=== PATIENT | female | born 1940 | race Caucasian/White ===

== ENCOUNTER 2023-04-04 05:58 | Emergency (ER) | payer MEDICARE, SELFPAY ==
[2023-04-04] VITALS (19 sets, daily range): BP systolic 152–187; BP diastolic 69–126; PULSE 71–98; RESP 12–23; TEMP 36.3–36.7; O2SAT 95–96
--- NOTE | ~2023-04-04 | CT_ITS ---
EXAMINATION: CT chest abdomen pelvis wo con DATE: 04/04/2023 07:03 INDICATION: Chest pain. Nausea. Diarrhea. TECHNIQUE: Computed tomography (CT) of the chest, abdomen, and pelvis was performed without intraveno us contrast. Automated exposure control and iterative reconstruction technique were employed. The dos e-length product was 1540.09 mGy-cm. COMPARISON: None FINDINGS: CHEST CT: There is mild scarring at right lung apex. There is mild atelectasis bilaterally. No pleural effusion . Cardiomegaly is noted. There are coronary artery calcifications. No pericardial effusion. The centr al pulmonary arteries are enlarged, consistent with pulmonary arterial hypertension. There is a moder ate-sized sliding hiatal hernia. There is mild thoracic spondylosis. ABDOMEN/PELVIS CT: There is a 6 mm cyst in the liver. The spleen is normal. There are gallstones in the gallbladder, whi ch is normal in size. The pancreas is normal. There is a 1.8 cm mass in right adrenal gland measuring soft tissue attenuation. There is a 2.4 cm mass in left adrenal gland measuring low attenuation, con sistent with an adenoma. There is a 9 mm cyst in left kidney. There is mild bilateral hydronephrosis. The bladder is distended. There is diverticulosis of the colon without evidence of diverticulitis. T here are no dilated loops of bowel. The appendix is not visualized. There is an umbilical hernia cont aining fat. Aortic atherosclerosis is noted. There are no pathologically enlarged lymph nodes. There is no free intraperitoneal fluid. There is internal fixation of right femur. There is severe lumbar s pondylosis. IMPRESSION: 1. Moderate-sized sliding hiatal hernia. 2. 1.8 cm mass in right adrenal gland. In the absence of known malignancy, this finding is likely an adenoma. 3. Distended bladder with mild bilateral hydronephrosis. 4. Umbilical hernia containing fat. Reviewed, dictated and finalized at location A.
--- NOTE | ~2023-04-04 | CT_ITS ---
EXAMINATION: CT brain wo con DATE: 04/04/2023 07:03 INDICATION: Dizziness. TECHNIQUE: Computed tomography (CT) of the head was performed without intravenous contrast. The mA wa s adjusted according to patient size. Iterative reconstruction technique was employed. The dose-lengt h product was 605.33 mGy-cm. COMPARISON: Head CT 09/23/2017 FINDINGS: There is an infarct in left thalamus. There are scattered areas of low attenuation in the c erebral white matter. The ventricles are normal in size. There is mucosal thickening in the paranasal sinuses. There is thickening and sclerosis of the burch of left maxillary sinus, consistent with chr onic sinusitis. The mastoid air cells are normal. There is cerumen in the external auditory canals. T he orbits are normal. IMPRESSION: 1. 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 2. Moderate nonspecific cerebral white matter disease, which likely represents chronic small vessel i schemic disease. Reviewed, dictated and finalized at location A. IMPRESSION: 1. 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 2. Moderate nonspecific cerebral white matter disease, which likely represents chronic small vessel ischemic disease.
--- NOTE | 2023-04-04 06:11 | ED.GENADULT ---
HPI - General Adult General Chief complaint: Dizziness Stated complaint: Dizziness/Nausea Time Seen by Provider: 04/04/23 05:59 Source: patient Mode of arrival: ambulatory Limitations: other ( patient is hard of hearing) History of Present Illness HPI narrative: 82-year-old white female brought in by EMS complaining of nausea and dizziness that started sometime tonight she is not quite sure when. Denies any vomiting as she feels dizzy can not really describe what she means by that. She says her commode at the end of the bed she tried to get up to go the commode she felt dizzy and off balance. Patient said she had some chest pain her right chest earlier and some in ambulance on the way. She had a diarrheal stool on the way in the ambulance. Does not have any chest pain now. patient upset about her 2 grandchildren have killed themselves, the most recent was 3 weeks ago. Past medical history she is post have cataracts this month and also in June she has D decreased hearing but has not had a hearing aid she has had 2 stents without any myocardial infarction or other heart disease she denies any lung diseas She has no change in her vision or hearing her both bad she walks with a walker just a few steps does not do any regular walking she has occasional tingling of her left hand she can not say when the last time that was she had some left calf tenderness or pain 3 or 4 days ago that comes and goes denies any headache or back pain or any other pain besides the chest pain that she had earlier. She said she sometimes has difficulty urinating and she wears a depends denies any dysuria her last bowel movement was yesterday. She has had a little bit of a cough and she said she had a sore throat last night cough is productive of white sputum but she denies any shortness of breath denies any rash or itching. Related Data Home Medications Medication Instructions Recorded Confirmed insulin glargine 100 unit/mL (3 36 unit subcut DAILY 04/04/23 04/04/23 mL) subcutaneous pen (Lantus Solostar U-100 Insulin) levothyroxine 150 mcg tablet 150 mcg PO DAILY 04/04/23 04/04/23 lisinopril 20 mg tablet 20 mg PO DAILY 04/04/23 04/04/23 Allergies Allergy/AdvReac Type Severity Reaction Status Date / Time aloe Allergy Unknown Verified 04/04/23 07:08 Review of Systems Review of Systems: All systems reviewed & are unremarkable except as noted in HPI and below Exam Narrative: White Elderly female patient milddistress.? Head normocephalic, atraumatic.? Eyes conjunctiva pink sclera nonicteric.? Extraocular movements are intact. she has nystagmus looking to the right with a fast component to the right. Positive Hallpike maneuver.? Ears externally normal. Hearing is decreased.? Oropharynx is clear . Lips are dry.? Neck is supple nontender no lymphadenopathy, no no bruits.? Back is nontender.? Lungs are clear.? Heart is regular rate and rhythm without murmurs gallops or rubs.? Chest wall is nontender.? Abdomen, positive bowel sounds and soft and nontender, no hepatosplenomegaly or masses no CVA tenderness no abdominal bruits.? Extremities no cyanosis clubbing or edema.? Skin is warm and dry without rashes or lesions.? Neurological patient is alert and oriented x4.? Motor and sensory grossly intact.? Gait not tested. Hallpike maneuver was positive. Medical Decision Making [facility] Narrative Medical decision making narrative: patient is placed in room 2 by EMS history and physical was performed. IV was started she was given L of fluid. she is given Zofran 4 mg IV WBCs 4.0, H and H is normal. Coags normal, CMP unremarkable.? Lactic acid Lipase troponin and magnesium pending and urinalysis yet to be collected Independent Historian: ? EMS EKG per EMS showed left bundle-branch block as independently interpreted by me. Differential Dx includes but not limited to: benign positional vertigo, stroke infected acute coronary syndrome Medications:?
--- NOTE | 2023-04-04 06:15 | ECG_ITS ---
Measurements Intervals [place] Rate: 80 P: 59 MA: 152 QRS: 97 QRSD: 186 T: -67 QT: 472 QTc: 545 Interpretive Statements SINUS RHYTHM BORDERLINE RIGHT AXIS DEVIATION LEFT BUNDLE BRANCH BLOCK ABNORMAL ECG NO PREVIOUS ECG AVAILABLE FOR COMPARISON Electronically Signed On 04-06-2023 12:13:14 CDT by Don Madrid M.D.
[2023-04-04] MEDS: SODIUM CHLORIDE 0.9% IV 1,000 ML 150 ML IV CONT (06:20)
[2023-04-04] MEDS: ONDANSETRON INJ 4 MG/2 ML VIAL IV PUSH ×2 (06:28→10:17)
[2023-04-04 06:44] LABS: Hematocrit 36.5 % (35.0-42.0); Mean Corpuscular HGB Conc 32.9 g/dL (32.0-36.0); Mean Corpuscular Hemoglobin 28.8 pg (27.0-31.0); Mean Corpuscular Volume 87.5 fL (78.0-102.0); Mean Platelet Volume 8.8 fl (9.2-11.8); Platelet Count Result 279 K/mm3 (150-420); Red Blood Count 4.17 M/mm3 (4.20-5.40); Red Cell Distribution Width 15.3 % (11.6-14.4)
[2023-04-04 06:59] LABS: Alanine Aminotransferase 11 U/L (14-59); Albumin Level 3.6 g/dL (3.4-5.0); Alkaline Phosphatase 57 U/L (46-116); Anion Gap 10 mmol/L (8-16); Aspartate Amino Transferase 11 U/L (15-37); Bilirubin,Total 0.3 mg/dL (0.00-1.00); Blood Urea Nitrogen 8 mg/dL (7-18); Calcium 8.8 mg/dL (8.5-10.1); Carbon Dioxide 28 mmol/L (21-32); Chloride 99 mmol/L (98-108); Estimated CRCL calculation 67 ml/min; Estimated Glomerular Filt Rate > 60; Glucose 143 mg/dL (70-99); INR 0.9; Osmolality Calculated 284 mOsm/kg (285-295); Partial Thromboplastin Time 30.4 SEC (23.90-30.70); Potassium 3.7 mmol/L (3.5-5.1); Prothrombin Time 10.2 Seconds (9.50-12.10); Sodium 137 mmol/L (136-145); Total Protein 7.1 g/dL (6.4-8.2)
[2023-04-04 07:27] LABS: Lipase 25 U/L (16-77); Magnesium 1.8 mg/dL (1.8-2.4); Troponin I 28.2 ng/L (0.00-60.4)
[2023-04-04 07:29] LABS: Lactic Acid Reflex 0.7 mmol/L (0.4-2.0)
[2023-04-04 07:34] LABS: Appearance Urine Clear (Clear); Bilirubin Urine Negative (Negative); Blood Urine Negative (Negative); Color Urine Light Yellow (Yellow); Glucose Urine UA Negative (Negative); Ketones Urine Negative (Negative); Leukocyte Esterase Ur Negative LEU/UL (Negative); Nitrate Urine Negative (Negative); Protein Urine Negative (Negative); Urobilinogen Urine 0.2 mg/dL (0.2-1.0); pH Urine 7.5 (5.0-8.0)
[2023-04-04 07:36] LABS: Add Urine Microscopic? NO
[2023-04-04] MEDS: MECLIZINE HCL 25 MG TABLET PO (08:45)
[2023-04-04 09:24] LABS: Glucose Point of Care 113 mg/dl (65-105)
[2023-04-04 10:09] LABS: Troponin I 33.9 ng/L (0.00-60.4)
--- NOTE | 2023-04-06 14:17 | PC.NURSE ---
FINAL URINE CULTURE RESULTS: ISOLATE 1: GREATER THAN 100,000 CFU/ML OF ESCHERICHIA COLI. PER ERP TO NOTIFY PMD OFFICE. EFRAIN ROBERTS AT [facility] WAS NOTIFIED OF RESULTS AND C&S WERE FAXED TO THE OFFICE. [facility] TO FOLLOW UP WITH PT AND CONTINUE TREATMENT.
--- NOTE | 2023-04-10 13:42 | PC.NURSE ---
Final blood culture report: no growth after 5 days, no further treatment or medications needed.
== END 2023-04-04 11:24 | disposition home or self-care (01) ==
PROVIDERS: Emergency Medicine; Emergency Provider Student in an Organized Health Care Education/Training Program; PCP Physician Assistant
DX: R42 Dizziness and giddiness (principal); R07.89 Other chest pain; R10.9 Unspecified abdominal pain; Z79.4 Long term (current) use of insulin
CPT/HCPCS: 36415; 70450; 71250; 74176; 80053; 81003; 82948; 83605; 83690; 83735; 84484; 85027; 85610; 85730; 87040; 87077; 87086; 87088; 87186; 93005; 96361; 96374; 96375; 99284; A9270; J2405; J7030

== ENCOUNTER 2023-04-08 16:12 | Emergency (ER) | payer MEDICARE, SELFPAY ==
--- NOTE | 2023-04-08 16:16 | ED.NAVMDI ---
HPI - Nausea/Vomiting/Diarrhea General Chief complaint: Urogenital-Female Stated complaint: Dizziness/Nausea Time Seen by Provider: 04/08/23 16:14 Source: patient, EMS and RN notes reviewed Mode of arrival: EMS Limitations: no limitations History of Present Illness HPI Narrative: Patient recently diagnosed with UTI and is currently on antibiotics. Still having problems with frequent urination. Feels a fullness in her lower abdomen but no pain. Says it feels like when she had the UTI 4 days ago. MD elicited complaint: nausea Onset (ago): day(s) (4) Associated nausea: Yes Associated abdominal pain: Yes Location of pain: diffuse Pain consistency: constant Severity: mild Quality: dull ( Pressure) Exacerbating factors: none Relieving factors: none Context: recent antibiotic use Associated symptoms: fever/chills, loss of appetite, malaise, dysuria ( frequent urination) and other ( dizziness) Related Data Home Medications Medication Instructions Recorded Confirmed insulin glargine 100 unit/mL (3 36 unit subcut DAILY 04/04/23 04/04/23 mL) subcutaneous pen (Lantus Solostar U-100 Insulin) levothyroxine 150 mcg tablet 150 mcg PO DAILY 04/04/23 04/04/23 lisinopril 20 mg tablet 20 mg PO DAILY 04/04/23 04/04/23 Allergies Allergy/AdvReac Type Severity Reaction Status Date / Time aloe Allergy Unknown Verified 04/04/23 07:08 Review of Systems Review of Systems: All systems reviewed & are unremarkable except as noted in HPI and below PMFSH Past Medical History Medical History (Updated 04/08/23 @ 18:36 by Reinier Charles MD) Hypertension Hypothyroidism Type 2 diabetes mellitus Exam Const: General: no acute distress, alert and ill appearing acutely Nutritional Appearance: well nourished and obese Orientation/consciousness: patient oriented x3 Limitations: no limitations HENMT: Head: normal to inspection Ears: external ears normal Face/Nose/Sinus: Normal external nose present Face and sinus: normal facial exam Mouth: Yes moist mucous membranes Eyes: Conjunctivae: conjunctivae normal Cornea: corneas normal Pupils: Equal, round and reactive pupils present EOM: EOMs intact bilaterally Neck: Neck: normal visual inspection Resp: Effort & Inspection: normal respiratory effort Auscultation: clear to auscultation bilaterally Cardio: Rate: regular rate Rhythm: regular rhythm GI: GI Palp: Yes Soft to palpation, Yes Tenderness to palpation present (GI) ( mild diffusely), No Guarding due to palpation present (GI) and No Rebound tenderness present Auscultation: normal bowel sounds Back/Spine/Pelvis: Cervical Spine: cervical ROM normal Thoracic/Lumbar Spine: thoraco-lumbar ROM normal Skin: General skin exam: normal color Rashes: no rashes Neuro: General: patient oriented x3, moves all extremities, no focal motor deficits and CN's II-XI intact bilaterally Speech: normal speech Extrem: General: normal to inspection and no clubbing, cyanosis or edema Psych: Mental Status: mental status grossly normal Affect: normal affect Attitude: cooperative Course Vital Signs Vital signs: Vital Signs Temperature 36.8 C 04/08/23 16:21 Pulse Rate 80 04/08/23 16:21 Respiratory Rate 19 04/08/23 16:21 Blood Pressure 170/79 H 04/08/23 16:21 Pulse Oximetry 99 04/08/23 16:21 Oxygen Delivery Room Air 04/08/23 16:21 Temperature 36.8 C 04/08/23 16:21 Pulse Rate 80 04/08/23 16:21 Respiratory Rate 19 04/08/23 16:21 Blood Pressure 170/79 H 04/08/23 16:21 Pulse Oximetry 99 04/08/23 16:21 Oxygen Delivery Room Air 04/08/23 16:21 MDM - Nausea/Vomiting/Diarrhea Differential Diagnosis Differential diagnosis: Likely drug-induced nausea and vomiting, dehydration and other ( Electrolyte abnormality, recurrent UTI, anemia.) Discharge Plan Discharge Clinical Impression: Nausea Patient Disposition: Home, Self-Care Condition: Stable Instructions: Acute Nausea and Vomiting (
[2023-04-08 16:21] VITALS: BP 170/79; PULSE 80; RESP 19; TEMP 36.8; O2SAT 99
[2023-04-08 16:48] LABS: Appearance Urine Clear (Clear); Bilirubin Urine Negative (Negative); Blood Urine Negative (Negative); Color Urine Light Yellow (Yellow); Glucose Urine UA Negative (Negative); Ketones Urine Negative (Negative); Leukocyte Esterase Ur Negative LEU/UL (Negative); Nitrate Urine Negative (Negative); Protein Urine Negative (Negative); Specific Grav Ur <= 1.005 (1.010-1.020); Urobilinogen Urine 0.2 mg/dL (0.2-1.0)
[2023-04-08 16:49] LABS: Add Urine Microscopic? NO
[2023-04-08 17:10] VITALS: BP 168/64; PULSE 81; RESP 20; O2SAT 98
[2023-04-08 18:10] LABS: Basophils Absolute Auto 0.06 K/mm3 (0.00-0.10); Basophils Percent Auto 0.8 % (0.0-1.0); Eosinophils Absolute Auto 0.11 K/mm3 (0.02-0.50); Eosinophils Percent Auto 1.4 % (1.0-6.0); Hematocrit 39.3 % (35.0-42.0); Hemoglobin 12.7 g/dL (11.7-13.8); Immature Granulocyte Absolute 0.03 K/mm3 (0.00-0.00); Immature Granulocyte Percent A 0.4 % (0.0-0.0); Lymphocytes Absolute Auto 1.59 K/mm3 (1.10-4.50); Lymphocytes Percent Auto 19.9 % (18.0-42.0); Mean Corpuscular HGB Conc 32.3 g/dL (32.0-36.0); Mean Corpuscular Hemoglobin 27.9 pg (27.0-31.0); Mean Corpuscular Volume 86.4 fL (78.0-102.0); Mean Platelet Volume 9.2 fl (9.2-11.8); Monocytes Absolute Auto 0.73 K/mm3 (0.10-0.90); Monocytes Percent Auto 9.1 % (2.0-11.0); Neutrophils Absolute Auto 5.5 K/mm3 (1.7-7.2); Neutrophils Percent Auto 68.4 % (50.0-70.0); Platelet Count Result 345 K/mm3 (150-420); Red Blood Count 4.55 M/mm3 (4.20-5.40); Red Cell Distribution Width 15.4 % (11.6-14.4)
[2023-04-08 18:22] LABS: Alanine Aminotransferase 15 U/L (14-59); Albumin Level 4.1 g/dL (3.4-5.0); Alkaline Phosphatase 60 U/L (46-116); Anion Gap 11 mmol/L (8-16); Aspartate Amino Transferase 17 U/L (15-37); Bilirubin,Total 0.3 mg/dL (0.00-1.00); Blood Urea Nitrogen 12 mg/dL (7-18); CRP < 0.5 mg/dL (0.0-0.9); Calcium 9.4 mg/dL (8.5-10.1); Carbon Dioxide 27 mmol/L (21-32); Chloride 100 mmol/L (98-108); Estimated CRCL calculation 65 ml/min; Estimated Glomerular Filt Rate > 60; Glucose 102 mg/dL (70-99); Osmolality Calculated 285 mOsm/kg (285-295); Potassium 3.8 mmol/L (3.5-5.1); Sodium 138 mmol/L (136-145); Total Protein 7.9 g/dL (6.4-8.2)
[2023-04-08 18:31] LABS: Lactic Acid Reflex 1.3 mmol/L (0.4-2.0)
[2023-04-08 18:39] VITALS: BP 164/62; PULSE 84; RESP 20; TEMP 37.1; O2SAT 98
[2023-04-08] MEDS: ONDANSETRON HCL ODT 4 MG TABLET PO (18:42)
[2023-04-08 18:55] VITALS: BP 136/92; PULSE 100; RESP 20; TEMP 36.8; O2SAT 94
--- NOTE | 2023-04-15 13:12 | PC.NURSE ---
Final blood culture report: no growth after 5 days, no further treatment or action needed at this time.
== END 2023-04-08 18:57 | disposition home or self-care (01) ==
PROVIDERS: Emergency Provider Emergency Medicine; PCP Physician Assistant
DX: R11.0 Nausea (principal); I10 Essential (primary) hypertension; E03.9 Hypothyroidism, unspecified; E11.9 Type 2 diabetes mellitus without complications; Z79.4 Long term (current) use of insulin
CPT/HCPCS: 36415; 80053; 81003; 83605; 83735; 85025; 86140; 87040; 99283; A9270

== ENCOUNTER 2023-05-23 09:55 | Emergency (ER) | payer MEDICARE, SELFPAY ==
--- NOTE | ~2023-05-23 | XR_ITS ---
EXAMINATION: XR chest 1V portable DATE: 05/23/2023 11:13 INDICATION: Palpitations. Chest pain. TECHNIQUE: A single frontal view of the chest was obtained. COMPARISON: Chest single view 09/23/2017, chest CT 04/04/2023 FINDINGS: There is mild atelectasis in left lower lung zone. No pleural effusion or pneumothorax. Car diomegaly is noted. There is a moderate-sized hiatal hernia. There is an old healed left rib fracture . IMPRESSION: 1. Mild atelectasis in left lower lung zone. 2. Cardiomegaly. 3. Moderate-sized hiatal hernia. Reviewed, dictated and finalized at location E.
[2023-05-23 09:56] VITALS: BP 147/86; PULSE 130; RESP 22; TEMP 36.4; O2SAT 95
[2023-05-23 10:31] VITALS: BP 141/85; PULSE 101; RESP 14; O2SAT 94
--- NOTE | 2023-05-23 10:42 | ECG_ITS ---
Measurements Intervals [place] Rate: 125 P: [place]: 0 QRS: 3 QRSD: 177 T: 85 QT: 363 QTc: 523 Interpretive Statements ATRIAL FLUTTER/TACHYCARDIA WITH RAPID VENTRICULAR RESPONSE LEFT BUNDLE BRANCH BLOCK [120+ ms QRS DURATION, 80+ ms Q/S IN V1/V2, 85+ ms R IN I/aVL/V5/V6] ABNORMAL ECG COMPARED TO ECG 04/04/2023 06:42:04 ATRIAL FLUTTER REPLACES SINUS RHYTHM Electronically Signed On 05-23-2023 13:38:30 CDT by Frederic Oliva M.D.
--- NOTE | 2023-05-23 11:00 | ED.GENADULT ---
HPI - General Adult General Chief complaint: Anxiety <Shree Mack PA-C - Last Filed: 05/23/23 16:19> Stated complaint: anxiety, afib <Shree Mack PA-C - Last Filed: 05/23/23 16:19> Time Seen by Provider: 05/23/23 10:31 <Shree Mack PA-C - Last Filed: 05/23/23 16:19> Source: patient <Shree Mack PA-C - Last Filed: 05/23/23 16:19> Mode of arrival: ambulatory <KRISTIN Stevens Last Filed: 05/23/23 16:19> Limitations: no limitations <Shree Mack PA-C - Last Filed: 05/23/23 16:19> History of Present Illness HPI narrative: This is a 82-year-old female with PMH of HTN, hypothyroid, DMT2 presents to the ED via EMS from doctor's office with chief complaint of tachycardia. She was there this morning to have cataract surgery on the left eye which has been dilated. She reports they thought her heart rate was too fast so she was transferred here. Patient states her main complaint right now is being hungry. States she has not eaten since 11 last night and now she just feels tired. When asked about chest pain she states she is having none now but had intermittent chest pain yesterday. She states it last for few seconds and then goes away. Located in the left side of the chest. States this has been going on for several weeks intermittently. Denies any current chest pain or shortness of breath. Denies palpitations, leg swelling. Denies fevers, chills, abdominal pain, nausea, vomiting, syncope, sweating. <Shree Mack PA-C - Last Filed: 05/23/23 16:19> Related Data Home medications: Home Medications Medication Instructions Recorded Confirmed insulin glargine 100 unit/mL (3 36 unit subcut DAILY 04/04/23 04/04/23 mL) subcutaneous pen (Lantus Solostar U-100 Insulin) levothyroxine 150 mcg tablet 150 mcg PO DAILY 04/04/23 04/04/23 lisinopril 20 mg tablet 20 mg PO DAILY 04/04/23 04/04/23 <Shree Mack PA-C - Last Filed: 05/23/23 16:19> Allergies/adverse reactions: Allergies Allergy/AdvReac Type Severity Reaction Status Date / Time aloe Allergy Unknown Verified 04/04/23 07:08 <Shree Mack PA-C - Last Filed: 05/23/23 16:19> Review of Systems Review of Systems: All systems as dictated in HPI <Shree Mack PA-C - Last Filed: 05/23/23 16:19> PMFSH Past Medical History Medical History: Medical History (Updated 05/26/23 @ 00:00 by Background Daemon) Hypertension Hypothyroidism Type 2 diabetes mellitus <Shree Mack PA-C - Last Filed: 05/23/23 16:19> Exam Narrative: GENERAL: Well-appearing, well-nourished, and in no acute distress. HEAD: Normocephalic, atraumatic. EYES: Pupils unequal. Left pupil dilated. EOMI. ENT: Nares clear, no rhinorrhea or epistaxis. Mucous membranes moist. Oropharynx without tonsillar hypertrophy exudate or other lesions. NECK: Supple. No adenopathy or masses. CHEST: No respiratory distress. Clear to auscultation. No wheezes rales or rhonchi HEART: Regular rate and rhythm. No murmur heard. Normal peripheral pulses. ABDOMEN: Soft, nontender, nondistended, normal active bowel sounds. MSK: Normal range of motion. No edema. SKIN: Warm, dry, no rash. NEURO: Alert and oriented x3. No focal deficits. Moves all extremities spontaneously. PSYCH: Normal mood and affect. <Shree Mack PA-C - Last Filed: 05/23/23 16:19> Course LOGISTICS ANALYTICS MANAGER/PA Physician Supervision For this patient encounter, I reviewed the LOGISTICS ANALYTICS MANAGER or PA documentation, treatment plan, and medical decision making and I had [id number] time with this patient. I performed all aspects of the MDM as documented. <Lilly Philip MD - Last Filed: 05/28/23 15:49> Vital Signs Vital signs: Vital Signs Temperature 97.6 F 05/23/23 09:56 Pulse Rate 130 H 05/23/23 09:56 Respiratory Rate 22 H 05/23/23 09:56 Blood Pressure 147/86 H 05/23/23 09:56 Pulse Oximetry 95 05/23/23 09:56 Oxygen Delivery Room Air 05/23/23 09:56
[2023-05-23 11:07] LABS: Basophils Absolute Auto 0.1 K/mm3 (0.0-0.1); Basophils Percent Auto 0.8 % (0.2-1.2); Eosinophils Percent Auto 0.5 % (0-4.4); Hematocrit 41.5 % (37.0-47.0); Hemoglobin 13.6 g/dL (12.0-15.0); Immature Granulocyte Absolute 0.02 K/mm3 (0.00-0.031); Immature Granulocyte Percent A 0.3 % (0-0.5); Lymphocytes Absolute Auto 0.88 K/mm3 (0.9-3.2); Lymphocytes Percent Auto 14.4 % (18.3-44.2); Mean Corpuscular HGB Conc 32.8 g/dl (32-36); Mean Corpuscular Hemoglobin 28.2 pg (26-34); Mean Corpuscular Volume 86.1 fl (80-100); Mean Platelet Volume 9.1 fl (7.4-10.4); Monocytes Absolute Auto 0.3 K/mm3 (0.1-0.6); Monocytes Percent Auto 5.2 % (2.6-8.5); Neutrophils Absolute Auto 4.8 K/mm3 (1.3-6.7); Neutrophils Percent Auto 78.8 % (45.5-73.1); Platelet Count Result 336 k/mm3 (150-375); Red Blood Count 4.82 M/mm3 (4.2-5.4); Red Cell Distribution Width 15.3 % (11.5-14.5); White Blood Count 6.1 K/mm3 (4.5-10.0)
[2023-05-23 11:17] LABS: Alanine Aminotransferase 19 U/L (6-35); Albumin Level 4.6 g/dL (3.5-5.1); Alkaline Phosphatase 63 U/L (38-126); Anion Gap 7 mmol/L (8-16); Aspartate Amino Transferase 28 U/L (14-36); Bilirubin,Total 0.6 mg/dL (0.2-1.3); Blood Urea Nitrogen 11 mg/dL (7-17); Calcium 10.1 mg/dL (8.4-10.2); Carbon Dioxide 29 mmol/L (22-30); Chloride 97 mmol/L (98-107); Estimated CRCL calculation 93 ml/min; Estimated Glomerular Filt Rate > 60; Glucose 145 mg/dL (65-110); Potassium 3.5 mmol/L (3.4-5.0); Sodium 133 mmol/L (137-145)
[2023-05-23 11:19] LABS: Partial Thromboplastin Time 28.9 SECONDS (22.3-36.8); Prothrombin Time 13.4 Seconds (11.1-14.7)
[2023-05-23 11:25] LABS: D Dimer 0.45 ug/mL (<0.48)
[2023-05-23 11:31] VITALS: BP 138/62; PULSE 94; RESP 14; O2SAT 95
[2023-05-23 11:47] VITALS: BP 120/94; PULSE 99; RESP 15; O2SAT 95
[2023-05-23 12:46] LABS: NT Pro B Type Natriuretic Pept 4770 pg/mL (19.9-100)
--- NOTE | 2023-05-23 12:59 | ECG_ITS ---
Measurements Intervals [place] Rate: 83 P: 38 WA: 152 QRS: 3 QRSD: 181 T: 185 QT: 445 QTc: 525 Interpretive Statements SINUS RHYTHM POSSIBLE LEFT ATRIAL ENLARGEMENT [-0.1mV P WAVE IN V1/V2] LEFT BUNDLE BRANCH BLOCK [120+ ms QRS DURATION, 80+ ms Q/S IN V1/V2, 85+ ms R IN I/aVL/V5/V6] ABNORMAL ECG COMPARED TO ECG 05/23/2023 10:17:30 SINUS RHYTHM REPLACES ATRIAL FIBRILLATION/FLUTTER Electronically Signed On 05-23-2023 13:44:00 CDT by Frederic Oliva M.D.
== END 2023-05-23 13:57 | disposition home or self-care (01) ==
PROVIDERS: Emergency Provider Physician Assistant; PCP Physician Assistant
DX: I48.0 Paroxysmal atrial fibrillation (principal); I10 Essential (primary) hypertension; E03.9 Hypothyroidism, unspecified; E11.9 Type 2 diabetes mellitus without complications; Z79.4 Long term (current) use of insulin; I51.7 Cardiomegaly; K44.9 Diaphragmatic hernia without obstruction or gangrene; I44.7 Left bundle-branch block, unspecified; R94.31 Abnormal electrocardiogram [ECG] [EKG]
CPT/HCPCS: 36415; 71045; 80053; 83880; 84484; 85025; 85380; 85610; 85730; 93005; 99284

== ENCOUNTER 2024-04-02 11:54 | Emergency (ER) | payer MEDICARE, SELFPAY ==
[2024-04-02 12:02] VITALS: BP 156/80; PULSE 92; RESP 20; TEMP 36.8; O2SAT 96
--- NOTE | 2024-04-02 12:07 | ED.EAR ---
HPI - Ear Problem General Chief complaint: Ear Stated complaint: Ear Problem Time Seen by Provider: 04/02/24 12:05 Source: patient, RN notes reviewed and old records reviewed Mode of arrival: ambulatory Limitations: no limitations History of Present Illness HPI Narrative: 83-year-old female to [facility] with her daughter for complaint of bilateral cerumen impaction. Patient's daughter states that they were at the audiology office earlier today for a hearing test and was advised that the test could not be completed due to bilateral cerumen impaction. Patient was advised to see an ENT for wax removal. Patient's daughter states that they wanted to check here first before seeing ENT. Patient's daughter is writing notes for patient because patient cannot hear in exam room. Patient's daughter states the patient has never had to have wax removed and that patient has not been complaining of pain or dizziness. Patient is sitting calmly and comfortably in wheelchair without complaints. respirations even and nonlabored. Patient in no acute distress. Related Data Home Medications Medication Instructions Recorded Confirmed insulin glargine 100 unit/mL (3 36 unit subcut DAILY 04/04/23 04/02/24 mL) subcutaneous pen (Lantus Solostar U-100 Insulin) levothyroxine 100 mcg tablet 100 mcg PO DAILY 04/02/24 04/02/24 Allergies Allergy/AdvReac Type Severity Reaction Status Date / Time aloe Allergy Unknown Verified 04/04/23 07:08 Review of Systems Review of Systems: All systems reviewed & are unremarkable except as noted in HPI and below Constitutional: Constitutional: Reports no additional constitutional complaints Eyes: Eyes: Reports no additional eye complaints ENT: Reports as per HPI and Reports other ( Bilateral cerumen impaction) Cardiovascular: Cardiovascular: Reports no additional cardiovascular complaints, Denies chest pain and Denies dyspnea Respiratory: Respiratory: Reports no additional respiratory complaints, Denies cough and Denies dyspnea Musculoskeletal: Musculoskeletal: Reports no additional musculoskeletal complaints Neurologic: Reports system reviewed and no additional complaints, except as documented Psychiatric: Psychiatric: Reports no additional psychiatric complaints PMFSH Past Medical History Medical History Hypertension Hypothyroidism Type 2 diabetes mellitus Comments At the time of my signature, I reviewed and agree with the nursing past medical, surgical, social, and family history. There is no relevant family history pertinent to the patient complaint. Exam Const: General: cooperative, healthy appearing, comfortable, no acute distress, alert and well nourished Nutritional Appearance: well nourished Orientation/consciousness: patient oriented x3 Limitations: other limitations ( bilateral cerumen impaction affecting hearing) HENMT: Head: normal to inspection Ears: Abnormal EAC present cerumen impaction bilateral, hearing grossly impaired bilaterally, TM abnormal erythematous on the left and obstructed by cerumen on the right and unable to visualize TM on the right Face/Nose/Sinus: Normal external nose present, Normal nares present, normal facial exam, No erythema and No edema Face and sinus: normal facial exam, no erythema and no edema Mouth: Yes Normal oral and palatal mucosa present Eyes: General: appearance normal, both eyes and all related structures Neck: Neck: normal visual inspection, full ROM and no meningeal signs Lymphatic: no lymphadenopathy noted and no lymphedema noted Chest: Chest palpation & inspection: normal inspection of the chest Resp: Effort & Inspection: normal respiratory effort and able to speak in complete sentences Auscultation: clear to auscultation bilaterally Cardio: Jugular venous distension: no JVD Rate: regular rate Rhythm: regular rhythm Back/Spine/Pelvis: Cervical Spine: cervical ROM
== END 2024-04-02 12:57 | disposition home or self-care (01) ==
PROVIDERS: Emergency Provider Nurse Practitioner Family; PCP Physician Assistant
DX: H66.92 Otitis media, unspecified, left ear (principal); H61.23 Impacted cerumen, bilateral; I10 Essential (primary) hypertension; E03.9 Hypothyroidism, unspecified; E11.9 Type 2 diabetes mellitus without complications; Z79.4 Long term (current) use of insulin
CPT/HCPCS: 69210; 99213; A9270; G0463